=== PATIENT | female | born 1945 | race Caucasian/White ===

== ENCOUNTER 2018-01-24 08:21 | Inpatient (IN) ==
[2018-01-24] MEDS ORDERED: methylPREDNISolone SOD SUC 125 MG/2 ML VIAL IV STA (08:41)
[2018-01-24] MEDS ORDERED: methylPREDNISolone SOD SUC 125 MG/2 ML VIAL ONE (08:46)
[2018-01-24] MEDS ORDERED: ALBUTEROL NEB SOLN 5 MG/ML 20 ML/BOTTLE RESP TX SCH (09:00)
[2018-01-24 09:08] LABS: Basophils # 0.1 10*3/uL (0.0-0.2); Basophils % 0.8 % (0.0-0.8); Eosinophils # 0.1 10*3/uL (0.0-0.87); Eosinophils % 1.1 % (0.00-10.9); Hematocrit 56.6 VOL% (35.7-47.0); Immature Granulocytes % 0.6 %; Immature Granulocytes Absolute 0.05 #; Lymphocytes # 1.5 10*3/uL (1.4-4.0); Lymphocytes % 17.3 % (21.3-54.2); Mean Corpuscular HGB Conc 31.6 GM/DL (32-36); Mean Corpuscular Hemoglobin 33 PG (27-34); Mean Corpuscular Volume 104.8 FL (87-102); Mean Platelet Volume 11.1 FL (9.6-12.0); Monocytes # 0.8 10*3/uL (0.11-0.8); Neutrophils # 6.1 10*3/uL (1.4-7.4); Neutrophils % 71.2 % (38.7-73.9); Platelet Count 218 T/CUMM (130-400); Red Cell Distribution Width 13.2 % (9.3-17.3); White Blood Count 8.6 T/CUMM (4-12)
[2018-01-24 09:09] LABS: Hemoglobin 17.9 GM/DL (12.0-16.0)
[2018-01-24 09:15] LABS: ABG Base Excess 8.5 MMOL/L (-2.5-2.5); ABG HCO3 31.6 MMOL/L (20-26); ABG Oxygen Saturation 76.5 % (95-100); ABG PH 7.329 (7.35-7.45); ABG PO2 46.1 MM HG (80-95); ABG TCO2 33.1 MMOL/L (23-27); Allen Test Positive
[2018-01-24 09:26] LABS: Albumin 3.3 G/DL (3.4-5.0); Bilirubin,Total 0.5 MG/DL (0.2-1.0); Calcium 8.8 MG/DL (8.5-10.1); Osmolality,Calculated 279.5 MOS/KG (273-304); Potassium 3.6 MMOL/L (3.5-5.1); Total Protein 7.7 G/DL (6.4-8.3)
[2018-01-24 09:28] LABS: Troponin I Only 0.198 NG/ML (0.00-0.045)
[2018-01-24] MEDS ORDERED: ACETAMINOPHEN 325 MG TABLET PO PRN (10:45)
[2018-01-24] MEDS ORDERED: ALBUTEROL 2.5 MG/3 ML NEB RESP TX PRN (10:45)
[2018-01-24] MEDS: ALBUTEROL/IPRATROPIUM 3 ML NEB RESP TX SCH ×4 (14:31→23:36)
[2018-01-24] MEDS: MEROPENEM 1,000 MG in SYRINGE 1 EACH IV SCH (14:50)
[2018-01-24] MEDS: acetaZOLAMIDE 250 MG TABLET PO SCH ×2 (14:50→20:04)
[2018-01-24] MEDS: methylPREDNISolone SOD SUC 40 MG/1 ML VIAL IV SCH ×2 (14:50→22:55)
[2018-01-24] MEDS: NICOTINE 21 MG/24 HR PATCH TRANSDERM SCH (14:50)
[2018-01-24] MEDS: FUROSEMIDE 40 MG/4 ML VIAL IV SCH (17:28)
[2018-01-24 19:52] LABS: Apearance,Urine CLEAR (Clear); Bilirubin,Urine Negative (Negative); Blood, Urine Negative (Negative); Glucose,Urine (UA) Negative (Negative); Hyaline Casts,Urine 1 /LPF (0-3); Ketones,Urine Negative (Negative); Mucus,Urine Occasional /LPF (Occasional); Nitrite,Urine Negative (Negative); Protein,Urine 100 MG/DL; RBC,Urine 1 /HPF (0-4); Squamous Epithelial Cell,Urine Occasional /HPF (0-10); Urine Color Yellow (Yellow); Urine Specific Gravity 1.009 (1.001-1.035); Urine Urobilinogen < 2.0 EU/DL (0.2-1.0); WBC,Urine 1 /HPF (0-6)
[2018-01-24] MEDS: FAMOTIDINE 20 MG TABLET PO SCH (20:04)
[2018-01-24] MEDS: hydrALAZINE 20 MG/1 ML VIAL IV PRN (20:04)
[2018-01-25] MEDS: MEROPENEM 1,000 MG in SYRINGE 1 EACH IV SCH ×2 (01:53→13:58)
[2018-01-25] MEDS: ALBUTEROL/IPRATROPIUM 3 ML NEB RESP TX SCH ×6 (03:22→22:26)
[2018-01-25 04:26] LABS: ABG HCO3 27.5 MMOL/L (20-26); ABG Oxygen Saturation 84.3 % (95-100); ABG PO2 56.7 MM HG (80-95); ABG TCO2 33.2 MMOL/L (23-27); Allen Test Positive
[2018-01-25 04:29] LABS: ABG PH 7.205 (7.35-7.45)
[2018-01-25 04:30] LABS: ABG PCO2 97.4 MM HG (35-48)
[2018-01-25 05:11] LABS: Calcium 8.7 MG/DL (8.5-10.1); Osmolality,Calculated 285.1 MOS/KG (273-304)
[2018-01-25 05:17] LABS: Basophils # 0.1 10*3/uL (0.0-0.2); Basophils % 0.8 % (0.0-0.8); Eosinophils % 0.1 % (0.00-10.9); Hematocrit 55.3 VOL% (35.7-47.0); Immature Granulocytes % 3.9 %; Immature Granulocytes Absolute 0.34 #; Lymphocytes # 0.8 10*3/uL (1.4-4.0); Lymphocytes % 8.6 % (21.3-54.2); Mean Corpuscular HGB Conc 30.7 GM/DL (32-36); Mean Corpuscular Hemoglobin 33 PG (27-34); Mean Corpuscular Volume 107.6 FL (87-102); Mean Platelet Volume 11.2 FL (9.6-12.0); Monocytes # 0.4 10*3/uL (0.11-0.8); Monocytes % 4.4 % (1.7-12.7); NRBC # 0.09 10*3/uL; Neutrophils # 7.2 10*3/uL (1.4-7.4); Neutrophils % 82.2 % (38.7-73.9); Platelet Count 214 T/CUMM (130-400); Red Blood Count 5.14 MC/CUMM (3.8-5.5); Red Cell Distribution Width 13.2 % (9.3-17.3); White Blood Count 8.8 T/CUMM (4-12)
[2018-01-25] MEDS: methylPREDNISolone SOD SUC 40 MG/1 ML VIAL IV SCH ×3 (06:26→22:58)
[2018-01-25] MEDS: acetaZOLAMIDE 250 MG TABLET PO SCH ×2 (08:42→20:50)
[2018-01-25] MEDS: FUROSEMIDE 40 MG/4 ML VIAL IV SCH ×2 (08:42→16:42)
[2018-01-25] MEDS: NICOTINE 21 MG/24 HR PATCH TRANSDERM SCH (08:43)
[2018-01-25] MEDS: hydrALAZINE 20 MG/1 ML VIAL IV PRN (12:32)
[2018-01-25] MEDS: THEOPHYLLINE ER 300 MG TABLET PO SCH (18:16)
[2018-01-25] MEDS: FAMOTIDINE 20 MG TABLET PO SCH (20:51)
[2018-01-26] MEDS: MEROPENEM 1,000 MG in SYRINGE 1 EACH IV SCH ×2 (01:53→13:34)
[2018-01-26] MEDS: hydrALAZINE 20 MG/1 ML VIAL IV PRN ×3 (04:21→16:45)
[2018-01-26] MEDS: methylPREDNISolone SOD SUC 40 MG/1 ML VIAL IV SCH ×2 (06:03→16:40)
[2018-01-26] MEDS: ALBUTEROL/IPRATROPIUM 3 ML NEB RESP TX SCH ×4 (07:31→19:55)
[2018-01-26 07:35] LABS: Basophils # 0.1 10*3/uL (0.0-0.2); Basophils % 0.6 % (0.0-0.8); Hematocrit 57.8 VOL% (35.7-47.0); Immature Granulocytes % 2.7 %; Immature Granulocytes Absolute 0.33 #; Lymphocytes # 0.8 10*3/uL (1.4-4.0); Lymphocytes % 6.4 % (21.3-54.2); Mean Corpuscular HGB Conc 30.1 GM/DL (32-36); Mean Corpuscular Hemoglobin 33 PG (27-34); Mean Corpuscular Volume 108.9 FL (87-102); Mean Platelet Volume 11.1 FL (9.6-12.0); Monocytes # 0.6 10*3/uL (0.11-0.8); NRBC # 0.03 10*3/uL; Neutrophils # 10.6 10*3/uL (1.4-7.4); Neutrophils % 85.3 % (38.7-73.9); Platelet Count 214 T/CUMM (130-400); Red Blood Count 5.31 MC/CUMM (3.8-5.5); Red Cell Distribution Width 13.7 % (9.3-17.3); White Blood Count 12.4 T/CUMM (4-12)
[2018-01-26 07:38] LABS: Hemoglobin 17.4 GM/DL (12.0-16.0)
[2018-01-26 07:44] LABS: Calcium 8.9 MG/DL (8.5-10.1); Osmolality,Calculated 286.3 MOS/KG (273-304); Potassium 3.9 MMOL/L (3.5-5.1)
[2018-01-26] MEDS: NICOTINE 21 MG/24 HR PATCH TRANSDERM SCH (09:17)
[2018-01-26] MEDS: acetaZOLAMIDE 250 MG TABLET PO SCH ×2 (09:17→20:21)
[2018-01-26] MEDS: THEOPHYLLINE ER 300 MG TABLET PO SCH ×2 (09:17→16:39)
[2018-01-26] MEDS: FUROSEMIDE 40 MG/4 ML VIAL IV SCH ×2 (09:18→16:42)
[2018-01-26] MEDS: FAMOTIDINE 20 MG TABLET PO SCH (20:21)
[2018-01-27] MEDS: MEROPENEM 1,000 MG in SYRINGE 1 EACH IV SCH ×2 (01:43→14:08)
[2018-01-27] MEDS: ALBUTEROL/IPRATROPIUM 3 ML NEB RESP TX SCH ×5 (03:44→19:35)
[2018-01-27] MEDS ORDERED: methylPREDNISolone SOD SUC 40 MG/1 ML VIAL IV SCH (06:00)
[2018-01-27] MEDS: THEOPHYLLINE ER 300 MG TABLET PO SCH ×2 (09:24→17:29)
[2018-01-27] MEDS: acetaZOLAMIDE 250 MG TABLET PO SCH (09:24)
[2018-01-27] MEDS: FUROSEMIDE 40 MG/4 ML VIAL IV SCH ×2 (09:24→17:30)
[2018-01-27] MEDS: NICOTINE 21 MG/24 HR PATCH TRANSDERM SCH (09:30)
[2018-01-27] MEDS ORDERED: ASPIRIN CHEW 81 MG TABLET PO ONE (20:01)
[2018-01-27] MEDS ORDERED: MORPHINE 2 MG/1 ML SYRINGE IV PRN (20:01)
[2018-01-27] MEDS ORDERED: NITROGLYCERIN SL 0.4 MG TABLET SL PRN (20:01)
[2018-01-27] MEDS ORDERED: ALUM/MAG/SIMETH/LIDO VISC 1:1 30 ML BOTTLE PO STA (20:04)
[2018-01-27] MEDS ORDERED: ASPIRIN 325 MG TABLET ONE (20:07)
[2018-01-27] MEDS ORDERED: METOPROLOL TARTRATE 5 MG/5 ML VIAL IV ONE (20:17)
[2018-01-27] MEDS ORDERED: methylPREDNISolone SOD SUC 125 MG/2 ML VIAL IV ONE (20:17)
[2018-01-27] MEDS ORDERED: LORazepam 2 MG/1 ML VIAL IV ONE (20:17)
[2018-01-27] MEDS ORDERED: LEVALBUTEROL 1.25 MG/3 ML NEB RESP TX ONE (20:17)
[2018-01-27 21:05] LABS: Basophils % 0.4 % (0.0-0.8); Hematocrit 57.2 VOL% (35.7-47.0); Hemoglobin 17.8 GM/DL (12.0-16.0); Immature Granulocytes % 1.2 %; Immature Granulocytes Absolute 0.13 #; Lymphocytes # 1.2 10*3/uL (1.4-4.0); Lymphocytes % 11.4 % (21.3-54.2); Mean Corpuscular HGB Conc 31.1 GM/DL (32-36); Mean Corpuscular Hemoglobin 34 PG (27-34); Mean Corpuscular Volume 107.5 FL (87-102); Mean Platelet Volume 10.8 FL (9.6-12.0); Monocytes # 1.2 10*3/uL (0.11-0.8); Monocytes % 10.7 % (1.7-12.7); Neutrophils # 8.3 10*3/uL (1.4-7.4); Neutrophils % 76.3 % (38.7-73.9); Platelet Count 240 T/CUMM (130-400); Red Blood Count 5.32 MC/CUMM (3.8-5.5); Red Cell Distribution Width 13.5 % (9.3-17.3); White Blood Count 10.9 T/CUMM (4-12)
[2018-01-27 21:25] LABS: Albumin 3.4 G/DL (3.4-5.0); Bilirubin,Total 0.5 MG/DL (0.2-1.0); Calcium 8.7 MG/DL (8.5-10.1); Osmolality,Calculated 287.3 MOS/KG (273-304); Potassium 3.3 MMOL/L (3.5-5.1); Total Protein 6.6 G/DL (6.4-8.3)
[2018-01-27] MEDS ORDERED: POTASSIUM CHLORIDE 20 MEQ TABLET PO PRN (21:39)
[2018-01-27] MEDS: ENOXAPARIN 100 MG/ML SYRINGE SUBCUT SCH (22:18)
[2018-01-27 23:08] LABS: ABG Base Excess 10.6 MMOL/L (-2.5-2.5); ABG HCO3 42.7 MMOL/L (20-26); ABG Oxygen Saturation 93.2 % (95-100); ABG PO2 71.8 MM HG (80-95); ABG TCO2 45.5 MMOL/L (23-27)
[2018-01-27 23:11] LABS: ABG PCO2 90.8 MM HG (35-48)
[2018-01-28] MEDS: hydrALAZINE 20 MG/1 ML VIAL IV PRN ×2 (01:13→21:13)
[2018-01-28] MEDS: acetaZOLAMIDE 250 MG TABLET PO SCH ×3 (01:21→10:15)
[2018-01-28] MEDS: FAMOTIDINE 20 MG TABLET PO SCH ×2 (01:21→21:09)
[2018-01-28 02:15] LABS: Basophils % 0.4 % (0.0-0.8); Hematocrit 53.9 VOL% (35.7-47.0); Hemoglobin 17.3 GM/DL (12.0-16.0); Immature Granulocytes % 1.3 %; Immature Granulocytes Absolute 0.11 #; Lymphocytes # 0.4 10*3/uL (1.4-4.0); Lymphocytes % 4.3 % (21.3-54.2); Mean Corpuscular HGB Conc 32.1 GM/DL (32-36); Mean Corpuscular Hemoglobin 34 PG (27-34); Mean Corpuscular Volume 104.7 FL (87-102); Mean Platelet Volume 10.8 FL (9.6-12.0); Monocytes # 0.1 10*3/uL (0.11-0.8); Monocytes % 1.6 % (1.7-12.7); Neutrophils # 7.9 10*3/uL (1.4-7.4); Neutrophils % 92.4 % (38.7-73.9); Platelet Count 223 T/CUMM (130-400); Red Blood Count 5.15 MC/CUMM (3.8-5.5); Red Cell Distribution Width 13.3 % (9.3-17.3); White Blood Count 8.5 T/CUMM (4-12)
[2018-01-28 02:43] LABS: Band Neutrophils 4 % (0-10); Lymphocytes 6 % (20-55); Macrocytosis 3+; Platelet Estimate Normal; Segmented Neutrophils 90 % (50-85); Total Cells Counted 100
[2018-01-28] MEDS: MEROPENEM 1,000 MG in SYRINGE 1 EACH IV SCH ×2 (02:44→14:43)
[2018-01-28 02:58] LABS: Calcium 8.8 MG/DL (8.5-10.1); Osmolality,Calculated 291.1 MOS/KG (273-304); Potassium 3.7 MMOL/L (3.5-5.1)
[2018-01-28] MEDS ORDERED: LORazepam 2 MG/1 ML VIAL IV ONE (03:31)
[2018-01-28] MEDS: ALBUTEROL/IPRATROPIUM 3 ML NEB RESP TX SCH ×5 (07:00→20:41)
[2018-01-28] MEDS: NICOTINE 21 MG/24 HR PATCH TRANSDERM SCH (08:25)
[2018-01-28] MEDS: FUROSEMIDE 40 MG/4 ML VIAL IV SCH (08:25)
[2018-01-28] MEDS: predniSONE 20 MG TABLET PO SCH ×2 (10:09→10:16)
[2018-01-28] MEDS: THEOPHYLLINE ER 300 MG TABLET PO SCH ×3 (10:09→17:39)
[2018-01-28 17:02] LABS: ABG Base Excess 10.8 MMOL/L (-2.5-2.5); ABG HCO3 41.4 MMOL/L (20-26); ABG Oxygen Saturation 93.2 % (95-100); ABG PH 7.338 (7.35-7.45); ABG PO2 70.9 MM HG (80-95); ABG TCO2 43.8 MMOL/L (23-27); Allen Test Positive; Pt O2 Delivery Device Venturi Mask
[2018-01-28 17:05] LABS: ABG PCO2 78.9 MM HG (35-48)
[2018-01-28] MEDS: ENOXAPARIN 100 MG/ML SYRINGE SUBCUT SCH (21:10)
[2018-01-29] MEDS: ALBUTEROL/IPRATROPIUM 3 ML NEB RESP TX SCH ×6 (00:18→19:50)
[2018-01-29] MEDS: MEROPENEM 1,000 MG in SYRINGE 1 EACH IV SCH ×2 (02:19→14:49)
[2018-01-29 06:43] LABS: Calcium 9.2 MG/DL (8.5-10.1); Osmolality,Calculated 293.8 MOS/KG (273-304); Potassium 3.6 MMOL/L (3.5-5.1)
[2018-01-29] MEDS: THEOPHYLLINE ER 300 MG TABLET PO SCH ×2 (09:19→16:14)
[2018-01-29] MEDS: methylPREDNISolone SOD SUC 40 MG/1 ML VIAL IV SCH ×3 (09:19→21:00)
[2018-01-29] MEDS: NICOTINE 21 MG/24 HR PATCH TRANSDERM SCH (09:19)
[2018-01-29] MEDS: hydrALAZINE 20 MG/1 ML VIAL IV PRN (20:57)
[2018-01-29] MEDS: FAMOTIDINE 20 MG TABLET PO SCH (21:00)
[2018-01-29] MEDS: ENOXAPARIN 100 MG/ML SYRINGE SUBCUT SCH (21:00)
[2018-01-30] MEDS: ALBUTEROL/IPRATROPIUM 3 ML NEB RESP TX SCH ×6 (01:07→20:16)
[2018-01-30] MEDS: MEROPENEM 1,000 MG in SYRINGE 1 EACH IV SCH ×2 (01:31→14:48)
[2018-01-30] MEDS: methylPREDNISolone SOD SUC 40 MG/1 ML VIAL IV SCH ×4 (03:26→20:19)
[2018-01-30] MEDS: hydrALAZINE 20 MG/1 ML VIAL IV PRN ×2 (06:39→15:37)
[2018-01-30] MEDS: NICOTINE 21 MG/24 HR PATCH TRANSDERM SCH (08:46)
[2018-01-30] MEDS: THEOPHYLLINE ER 300 MG TABLET PO SCH ×3 (08:47→16:57)
[2018-01-30] MEDS: FAMOTIDINE 20 MG TABLET PO SCH (20:19)
[2018-01-30] MEDS: ENOXAPARIN 100 MG/ML SYRINGE SUBCUT SCH (21:54)
[2018-01-31] MEDS: ALBUTEROL/IPRATROPIUM 3 ML NEB RESP TX SCH ×7 (00:25→23:30)
[2018-01-31] MEDS: MEROPENEM 1,000 MG in SYRINGE 1 EACH IV SCH ×2 (01:30→14:47)
[2018-01-31] MEDS: methylPREDNISolone SOD SUC 40 MG/1 ML VIAL IV SCH ×4 (02:40→21:16)
[2018-01-31] MEDS: hydrALAZINE 20 MG/1 ML VIAL IV PRN (02:43)
[2018-01-31] MEDS: THEOPHYLLINE ER 300 MG TABLET PO SCH ×2 (08:39→16:25)
[2018-01-31] MEDS: NICOTINE 21 MG/24 HR PATCH TRANSDERM SCH (08:40)
[2018-01-31] MEDS: ENOXAPARIN 100 MG/ML SYRINGE SUBCUT SCH (21:15)
[2018-01-31] MEDS: FAMOTIDINE 20 MG TABLET PO SCH (21:19)
[2018-02-01] MEDS: MEROPENEM 1,000 MG in SYRINGE 1 EACH IV SCH ×2 (01:44→12:32)
[2018-02-01] MEDS: methylPREDNISolone SOD SUC 40 MG/1 ML VIAL IV SCH ×3 (01:52→17:04)
[2018-02-01] MEDS: ALBUTEROL/IPRATROPIUM 3 ML NEB RESP TX SCH ×6 (03:02→23:28)
[2018-02-01 05:19] LABS: Basophils % 0.2 % (0.0-0.8); Hematocrit 53.5 VOL% (35.7-47.0); Hemoglobin 17.4 GM/DL (12.0-16.0); Immature Granulocytes % 0.4 %; Immature Granulocytes Absolute 0.03 #; Lymphocytes # 0.2 10*3/uL (1.4-4.0); Lymphocytes % 2.7 % (21.3-54.2); Mean Corpuscular HGB Conc 32.5 GM/DL (32-36); Mean Corpuscular Hemoglobin 33 PG (27-34); Mean Corpuscular Volume 102.5 FL (87-102); Mean Platelet Volume 10.9 FL (9.6-12.0); Monocytes # 0.2 10*3/uL (0.11-0.8); Monocytes % 2.6 % (1.7-12.7); Neutrophils % 94.1 % (38.7-73.9); Platelet Count 164 T/CUMM (130-400); Red Blood Count 5.22 MC/CUMM (3.8-5.5); Red Cell Distribution Width 12.7 % (9.3-17.3); White Blood Count 8.5 T/CUMM (4-12)
[2018-02-01 05:58] LABS: Osmolality,Calculated 299.6 MOS/KG (273-304); Potassium 3.8 MMOL/L (3.5-5.1)
[2018-02-01 06:03] LABS: Band Neutrophils 1 % (0-10); Hypochromasia 1+; Lymphocytes 1 % (20-55); Platelet Estimate Normal; Segmented Neutrophils 96 % (50-85); Total Cells Counted 100
[2018-02-01 06:04] LABS: Giant Platelets Few; Ovalocytes Slight
[2018-02-01] MEDS: THEOPHYLLINE ER 300 MG TABLET PO SCH ×2 (08:18→17:04)
[2018-02-01] MEDS: NICOTINE 21 MG/24 HR PATCH TRANSDERM SCH (08:18)
[2018-02-01] MEDS ORDERED: NIFEdipine 10 MG CAPSULE PO PRN (11:06)
[2018-02-01] MEDS: acetaZOLAMIDE 250 MG TABLET PO SCH ×2 (12:03→20:28)
[2018-02-01] MEDS: FAMOTIDINE 20 MG TABLET PO SCH (20:28)
[2018-02-01] MEDS: ENOXAPARIN 100 MG/ML SYRINGE SUBCUT SCH (21:34)
[2018-02-02] MEDS: MEROPENEM 1,000 MG in SYRINGE 1 EACH IV SCH ×2 (00:44→14:33)
[2018-02-02] MEDS: methylPREDNISolone SOD SUC 40 MG/1 ML VIAL IV SCH ×2 (00:44→10:16)
[2018-02-02] MEDS: ALBUTEROL/IPRATROPIUM 3 ML NEB RESP TX SCH ×5 (03:00→19:11)
[2018-02-02 04:51] LABS: Basophils % 0.4 % (0.0-0.8); Hematocrit 56.5 VOL% (35.7-47.0); Hemoglobin 18.3 GM/DL (12.0-16.0); Immature Granulocytes % 0.6 %; Immature Granulocytes Absolute 0.06 #; Lymphocytes # 0.6 10*3/uL (1.4-4.0); Lymphocytes % 6.6 % (21.3-54.2); Mean Corpuscular HGB Conc 32.4 GM/DL (32-36); Mean Corpuscular Hemoglobin 34 PG (27-34); Mean Corpuscular Volume 104.1 FL (87-102); Mean Platelet Volume 11.7 FL (9.6-12.0); Monocytes # 0.8 10*3/uL (0.11-0.8); Monocytes % 8.7 % (1.7-12.7); Neutrophils % 83.7 % (38.7-73.9); Platelet Count 177 T/CUMM (130-400); Red Blood Count 5.43 MC/CUMM (3.8-5.5); Red Cell Distribution Width 12.7 % (9.3-17.3); White Blood Count 9.6 T/CUMM (4-12)
[2018-02-02 05:02] LABS: Calcium 9.3 MG/DL (8.5-10.1); Osmolality,Calculated 294.8 MOS/KG (273-304); Potassium 3.6 MMOL/L (3.5-5.1)
[2018-02-02] MEDS: acetaZOLAMIDE 250 MG TABLET PO SCH ×2 (09:10→20:54)
[2018-02-02] MEDS: NICOTINE 21 MG/24 HR PATCH TRANSDERM SCH (09:11)
[2018-02-02] MEDS: THEOPHYLLINE ER 300 MG TABLET PO SCH ×2 (09:11→18:57)
[2018-02-02] MEDS: predniSONE 20 MG TABLET PO SCH (09:21)
[2018-02-02] MEDS: FLUTICASONE INH SCH (09:25)
[2018-02-02] MEDS: VILANTEROL INH SCH (09:25)
[2018-02-02] MEDS: FAMOTIDINE 20 MG TABLET PO SCH (20:54)
[2018-02-02] MEDS ORDERED: ENOXAPARIN 40 MG/0.4 ML SYRINGE SUBCUT SCH (21:00)
[2018-02-03] MEDS: MEROPENEM 1,000 MG in SYRINGE 1 EACH IV SCH (02:13)
[2018-02-03] MEDS: ALBUTEROL/IPRATROPIUM 3 ML NEB RESP TX SCH ×5 (03:20→14:23)
[2018-02-03] MEDS: NICOTINE 21 MG/24 HR PATCH TRANSDERM SCH (08:34)
[2018-02-03] MEDS: predniSONE 20 MG TABLET PO SCH (08:34)
[2018-02-03] MEDS: acetaZOLAMIDE 250 MG TABLET PO SCH (08:34)
[2018-02-03] MEDS: THEOPHYLLINE ER 300 MG TABLET PO SCH (08:34)
[2018-02-03] MEDS: VILANTEROL INH SCH (08:35)
[2018-02-03] MEDS: FLUTICASONE INH SCH (08:35)
[2018-02-03] MEDS ORDERED: CEFUROXIME 500 MG TABLET PO SCH (09:00)
[2018-02-03 11:21] VITALS: BP 175/75
== END 2018-02-03 15:05 | disposition home health service (06) | DRG 190 ==
LOC: N.ED 08:21 → SUATTDRO 09:59 → N.EDINP 09:59 → N.4E 11:40 → N.CC 01-28 19:11 → N.4E 02-02 16:01
PROVIDERS: ADMIT Internal Medicine; ATTEND Internal Medicine